=== PATIENT | female | born 1940 | race Caucasian/White ===

== ENCOUNTER → 2016-10-01 | Outpatient (CLI) | payer MEDICARE ==
[~2016-10-01] MED LIST: REGADENOSON 0.4 MG/5 ML DISP.SYRIN. IV ONE
--- NOTE | 2016-10-01 09:34 | PCVCIMAG ---
APPROVED REPORT Study performed: 10/01/2016 08:07:59 EXAM: Comprehensive 2D, Doppler, and color-flow Echocardiogram Other Information Study Quality: Adequate Indications Abnormal ECG Diabetes Syncope PVCs 2D Dimensions LVEF(%): 37.54 (>50%) IVSd: 8.54 (7-11mm) LVDd: 48.10 mm PWd: 10.33 (7-11mm) LVDs: 39.39 (25-40mm) Left Atrium: 40.96 (27-40mm) Aortic Root: 27.43 mm LV Single Plane 4CH: 44.19 % LV Single Plane 2CH: 40.07 %Mccoy's LVEF: 42.13 % Biplane EF: 41.2 % Volumes Left Atrial Volume (Systole) Single Plane 4CH: 72.90 mLSingle Plane 2CH: 76.12 mL Aortic Valve AoV Peak Ned.: 1.32 m/s AO Peak Gr.: 6.92 mmHgLVOT Max P.30 mmHg LVOT Max V: 0.76 m/s Mitral Valve E/A Ratio: 0.8 MV Decel. Time: 270.34 ms MV E Max Ned.: 0.74 m/s MV A Ned.: 0.92 m/s IVRT: 107.27 ms Pulmonary Valve PV Peak Ned.: 0.82 m/sPV Peak Gr.: 2.70 mmHg Pulmonary Vein P Vein S: 0.50 m/sP Vein A: 0.36 m/s P Vein D: 0.59 m/sP Vein A Dur.: 124.6 msec P Vein S/D Ratio: 0.85 Tricuspid Valve TR Peak Ned.: 2.56 m/s TR Peak Gr.: 26.29 mmHg Left Ventricle The left ventricle is normal size. There is normal LV segmental wall motion. There is normal left ventricular wall thickness. Left ventricular systolic function is mildly decreased globally. LVEF 45%. Grade I - abnormal relaxation pattern. Right Ventricle The right ventricle is normal size. The right ventricular systolic function is normal. Atria The left atrium size is moderately dilated. The right atrium size is normal. Aortic Valve The aortic valve is normal in structure. No aortic regurgitation is present. There is no aortic valvular stenosis. Mitral Valve The mitral valve is normal in structure. Moderate mitral regurgitation. No evidence of mitral valve stenosis. Tricuspid Valve The tricuspid valve is normal in structure. Mild tricuspid regurgitation with PAP of 33 mmHg. Pulmonic Valve The pulmonary valve is normal in structure. There is mild pulmonic valvular regurgitation. Great Vessels The aortic root is normal in size. IVC is normal in size and collapses with >50% inspiration Pericardium There is no pericardial effusion. <Conclusion> Left ventricular systolic function is mildly decreased globally. There is normal LV segmental wall motion. LVEF 45%. Grade I diastolic dysfunction The left atrium size is moderately dilated. Normal RV size and function The aortic valve is normal in structure. No aortic valvular stenosis. The mitral valve is normal in structure. Moderate mitral regurgitation. Mild tricuspid regurgitation with PAP of 33 mmHg. There is no pericardial effusion.
--- NOTE | 2016-10-01 18:45 | PCVCIMAG ---
APPROVED REPORT Exam: Nuclear Stress Test Indication: Dyspnea , Abnormal EKG, Syncope Patient Location: Out-Patient Stress Nurse: Karen Baron RN, Kandi Garvin RN [place] Tech:Ev Deerichar [facility] Ht: 5 ft 3 in Wt: 154 lbs BSA: 1.73 m2 HR: 72 bpm BP: 111/55 mmHg BMI: 27.2 Rhythm: , NSR, PVC's Medical History Medical History: Age, HTN, Hyperlipidemia, Diabetic Noninsulin Medications: Aspirin, HCTZ, Levothyroxine, Zoloft, Simvastatin Allergies: Lisinopril, Sulfa, PCN Pretest Chest Pain Characteristics: No chest pain NM EXAM: Myocardial Perfusion REST/STRESS Imaging Protocol: Rest Tc-99m/Stress Tc-99m 1 day Resting Data Rest SPECT myocardial perfusion imaging was performed in supine position 45 minutes following the intravenous injection of 10.5 mCi of Tc-99m Sestamibi. Time of rest injection: 0850 Date: 10/01/2016 Pharmacologic Stress Pharmacologic stress test was performed by injecting Regadenoson 0.4 mg IV push followed by the intravenous injection of 32.3 mCi of Tc-99m Sestamibi. Time of stress injection: 1020 Date: 10/01/2016 Gated Stress SPECT was performed 45 minutes after stress injection. The images were gated to evaluate regional wall motion and calculate left ventricular ejection fraction. Study Data Post stress, the left ventricular ejection was 68%.. SSS: 0 SRS: 0 SDS: 0 TID = 0.98. Perfusion No evidence of stress induced ischemia or prior myocardial infarction. Wall Motion Normal left ventricular size and function with no regional wall motion abnormalities. Nuclear Conclusion No evidence of stress induced ischemia or prior myocardial infarction. Normal left ventricular size and function with no regional wall motion abnormalities. Post stress, the left ventricular ejection was 68%.. No prior study available for comparison. Interpreted by: Alfredo Ortega MD Electronically Approved: 10/01/2016 13:27:35 Stress Test Details Stress Test: Pharmacologic stress was paired with low level exercise. Reason for pharmacologic stress test: physical limitation. HR Resting HR: 71 bpmMax Heart Rate (APMHR): 143 bpm Max HR Achieved: 81 bpmTarget HR (85% APMHR): 121 bpm % of APMHR: 56 Recovery HR: 83 bpm BP Resting BP: 115/55 mmHg Max BP: 86/50 mmHg Recovery BP: 129/65 mmHg ECG Resting ECG: Sinus Rhythm, Isolated PVCs Stress ECG: Sinus Rhythm Maximum ST Deviation: 0 mm Arrhythmia: VPC's Recovery ECG: Sinus Rhythm Recovery ST Change: None Clinical Reason for Termination: Completed protocol Stress Symptoms: Low BP, Headache, resoved during recovery Exercise duration: 4 min 00 sec Exercise capacity: 1.6 METs Symptoms resolved with caffeine. Nurse Comments IV DC'd Stress ECG Conclusion Clinical: Non-ischemic ECG: Non-ischemic <Conclusion> Clinical: Non-ischemic ECG: Non-ischemic
== END | disposition home or self-care (01) ==
LOC: PCVCIMAG 08:00
PROVIDERS: ATTEND Internal Medicine
DX: I08.1 Rheumatic disorders of both mitral and tricuspid valves (principal); E11.9 Type 2 diabetes mellitus without complications; R94.31 Abnormal electrocardiogram [ECG] [EKG]; R55 Syncope and collapse
CPT/HCPCS: 78452; 93017; 93306; A9500; J2785

== ENCOUNTER → 2016-10-22 | Outpatient (CLI) | payer MEDICARE | END | disposition home or self-care (01) | LOC: PCVCCLINIC 11:00 | PROVIDERS: ATTEND Internal Medicine | DX: I49.3 Ventricular premature depolarization (principal); I42.9 Cardiomyopathy, unspecified; E11.9 Type 2 diabetes mellitus without complications; E78.5 Hyperlipidemia, unspecified; J45.909 Unspecified asthma, uncomplicated; M81.0 Age-related osteoporosis without current pathological fracture; Z90.49 Acquired absence of other specified parts of digestive tract; Z90.710 Acquired absence of both cervix and uterus; Z79.82 Long term (current) use of aspirin; Z88.2 Allergy status to sulfonamides; Z79.899 Other long term (current) drug therapy | CPT/HCPCS: G0463 ==

== ENCOUNTER → 2017-01-20 | Outpatient (CLI) | payer MEDICARE | END | disposition home or self-care (01) | LOC: PCVCCLINIC 15:59 | PROVIDERS: ATTEND Internal Medicine | DX: I49.3 Ventricular premature depolarization (principal); I42.0 Dilated cardiomyopathy; E78.5 Hyperlipidemia, unspecified; E11.9 Type 2 diabetes mellitus without complications; J45.909 Unspecified asthma, uncomplicated; M81.0 Age-related osteoporosis without current pathological fracture; Z90.49 Acquired absence of other specified parts of digestive tract; Z90.710 Acquired absence of both cervix and uterus; Z79.82 Long term (current) use of aspirin; Z79.899 Other long term (current) drug therapy; Z88.8 Allergy status to other drugs, medicaments and biological substances | CPT/HCPCS: 80061; 93005; G0463 ==

== ENCOUNTER → 2017-03-02 | Outpatient (CLI) | payer MEDICARE | END | disposition home or self-care (01) | LOC: PCVCCLINIC 13:39 | PROVIDERS: ATTEND Internal Medicine | DX: I49.3 Ventricular premature depolarization (principal); I42.0 Dilated cardiomyopathy; I95.1 Orthostatic hypotension; E11.9 Type 2 diabetes mellitus without complications; Z79.899 Other long term (current) drug therapy; Z79.82 Long term (current) use of aspirin | CPT/HCPCS: 93005; G0463 ==

== ENCOUNTER → 2017-05-12 | Outpatient (CLI) | payer MEDICARE | END | disposition home or self-care (01) | LOC: PCVCCLINIC 13:48 | DX: I42.0 Dilated cardiomyopathy (principal); I49.3 Ventricular premature depolarization; E11.9 Type 2 diabetes mellitus without complications; R94.31 Abnormal electrocardiogram [ECG] [EKG]; Z79.82 Long term (current) use of aspirin; Z79.899 Other long term (current) drug therapy | CPT/HCPCS: 93005; G0463 ==

== ENCOUNTER → 2017-07-07 | Outpatient (CLI) | payer MEDICARE | END | disposition home or self-care (01) | LOC: PCVCCLINIC 14:09 | DX: I49.3 Ventricular premature depolarization (principal); I49.5 Sick sinus syndrome; R94.31 Abnormal electrocardiogram [ECG] [EKG]; E78.5 Hyperlipidemia, unspecified; E11.9 Type 2 diabetes mellitus without complications; Z88.0 Allergy status to penicillin | CPT/HCPCS: 80061; 93005; G0463 ==

== ENCOUNTER → 2017-09-01 | Outpatient (CLI) | payer MEDICARE | END | disposition home or self-care (01) | LOC: PCVCCLINIC 13:57 | DX: I42.0 Dilated cardiomyopathy (principal); I49.3 Ventricular premature depolarization; E11.9 Type 2 diabetes mellitus without complications; Z79.4 Long term (current) use of insulin; Z95.0 Presence of cardiac pacemaker; Z79.82 Long term (current) use of aspirin; Z79.899 Other long term (current) drug therapy; Z88.8 Allergy status to other drugs, medicaments and biological substances; Z88.0 Allergy status to penicillin | CPT/HCPCS: 93005; G0463 ==

== ENCOUNTER → 2017-10-28 | Outpatient (CLI) | payer MEDICARE | END | disposition home or self-care (01) | LOC: PCVCCLINIC 13:59 | PROVIDERS: ATTEND Internal Medicine | DX: I42.0 Dilated cardiomyopathy (principal); I49.3 Ventricular premature depolarization; E11.9 Type 2 diabetes mellitus without complications; Z79.4 Long term (current) use of insulin; Z95.0 Presence of cardiac pacemaker; Z79.82 Long term (current) use of aspirin; Z79.899 Other long term (current) drug therapy | CPT/HCPCS: 93005; 93280; G0463 ==

== ENCOUNTER → 2018-05-05 | Outpatient (CLI) | payer MEDICARE | END | disposition home or self-care (01) | LOC: PCVCCLINIC 15:07 | PROVIDERS: ATTEND Internal Medicine | DX: I11.9 Hypertensive heart disease without heart failure (principal); I42.0 Dilated cardiomyopathy; I49.3 Ventricular premature depolarization; E78.5 Hyperlipidemia, unspecified; E11.9 Type 2 diabetes mellitus without complications; M81.0 Age-related osteoporosis without current pathological fracture; J45.909 Unspecified asthma, uncomplicated; Z79.82 Long term (current) use of aspirin; Z95.0 Presence of cardiac pacemaker; Z79.4 Long term (current) use of insulin; Z88.0 Allergy status to penicillin; Z88.2 Allergy status to sulfonamides; Z79.899 Other long term (current) drug therapy | CPT/HCPCS: 80061; 93280; G0463 ==

== ENCOUNTER → 2018-11-10 | Outpatient (CLI) | payer MEDICARE ==
--- NOTE | 2018-11-10 15:03 | PCVCIMAG ---
APPROVED REPORT Study performed: 11/10/2018 12:53:50 EXAM: Comprehensive 2D, Doppler, and color-flow Echocardiogram Patient Location: Echo lab Status: routine BSA: 1.73 HR: 63 bpmBP: 134/68 mmHg Rhythm: Pacemaker w/ PVCs Other Information Study Quality: Adequate Risk Factors: Cardiac Risk Factors: DM Indications Pacemaker Cardiomyopathy 2D Dimensions IVSd: 10.74 (7-11mm) LVDd: 51.69 mm PWd: 10.13 (7-11mm)Ascending Ao: 31.50 (22-36mm) LVDs: 42.63 (25-40mm) Left Atrium: 44.88 (27-40mm) Aortic Root: 28.15 mm LV Single Plane 4CH: 45.80 % LV Single Plane 2CH: 42.40 % Biplane EF: 44.2 % Volumes Left Atrial Volume (Systole) Single Plane 4CH: 91.84 mLSingle Plane 2CH: 101.64 mL LA ESV Index: 59.00 mL/m2 Aortic Valve AoV Peak Ned.: 1.57 m/s AO Peak Gr.: 9.82 mmHgLVOT Max P.53 mmHg LVOT Max V: 0.94 m/s Mitral Valve E/A Ratio: 2.3 MV Decel. Time: 230.26 ms MV E Max Ned.: 1.01 m/s MV A Ned.: 0.44 m/s IVRT: 100.35 ms Pulmonary Valve PV Peak Ned.: 0.88 m/sPV Peak Gr.: 3.07 mmHg Pulmonary Vein P Vein S: 0.35 m/sP Vein A: 0.32 m/s P Vein D: 1.07 m/sP Vein A Dur.: 110.7 msec P Vein S/D Ratio: 0.33 Tricuspid Valve TR Peak Ned.: 2.55 m/s TR Peak Gr.: 26.07 mmHg TV Vmax: 0.55 m/s Left Ventricle The left ventricle is normal size. There is normal LV segmental wall motion. There is normal left ventricular wall thickness. Left ventricular systolic function is at the lower limits of normal. LVEF is 45-50%. Severe diastolic dysfunction is present (restrictive filling). Right Ventricle The right ventricle is normal size. The right ventricular systolic function is normal. Pacemaker lead is present in the right ventricle. Atria Left atrium is severely dilated. Right atrium is mildly dilated. Pacemaker lead is present in the right atrium. Aortic Valve The aortic valve is normal in structure. No aortic regurgitation is present. There is no aortic valvular stenosis. Mitral Valve The mitral valve is normal in structure. Moderate mitral regurgitation. No evidence of mitral valve stenosis. Tricuspid Valve The tricuspid valve is normal in structure. Mild tricuspid regurgitation with PAP of 33 mmHg. Pulmonic Valve The pulmonary valve is normal in structure. There is no pulmonic valvular regurgitation. Great Vessels The aortic root is normal in size. IVC is normal in size and collapses >50% with inspiration. Pericardium Trace pericardial effusion. There is no pleural effusion. <Conclusion> Left ventricular systolic function is at the lower limits of normal. LVEF is 45-50%. Severe diastolic dysfunction Left atrium is severely dilated. The aortic valve is normal in structure. No aortic regurgitation or stenosis The mitral valve is normal in structure. Moderate mitral regurgitation. Mild tricuspid regurgitation with pulmonary artery pressure of 33 mmHg. Trace pericardial effusion.
== END | disposition home or self-care (01) ==
LOC: PCVCIMAG 13:33
PROVIDERS: ATTEND Internal Medicine
DX: I08.1 Rheumatic disorders of both mitral and tricuspid valves (principal); I42.0 Dilated cardiomyopathy; I49.3 Ventricular premature depolarization; E78.5 Hyperlipidemia, unspecified; E11.9 Type 2 diabetes mellitus without complications; J45.909 Unspecified asthma, uncomplicated; M81.0 Age-related osteoporosis without current pathological fracture; Z79.4 Long term (current) use of insulin; Z95.0 Presence of cardiac pacemaker
CPT/HCPCS: 93005; 93280; 93306; G0463